=== PATIENT | male | born 1980 | race Caucasian/White ===

== ENCOUNTER 2019-05-02 17:31 | Emergency (ER) | payer OTHER ==
[~2019-05-02] VITALS: Ht 180.3 cm; Wt 134.1 kg
[2019-05-02] MEDS ORDERED: SUBO8MIS SL (19:48)
[2019-05-02 21:04] LABS: BASO # 0.1 10^3/uL (0.0-0.2); EOS # 0.4 10^3/uL (0.0-0.50); EOS % 3.3 % (0.0-3.0); HEMOGLOBIN 15.2 g/dl (13.5-17.5); LYMPH # 4.1 10^3/uL (1.5-4.5); LYMPH % 31.9 % (24.0-44.0); MEAN CORPUSCULAR HEMOGLOBIN 29.3 pg (27.0-33.0); MEAN CORPUSCULAR HGB CONC 32.3 g/dl (32.0-36.5); MEAN CORPUSCULAR VOLUME 90.6 fl (80.0-96.0); MONO # 0.8 10^3/uL (0.0-0.8); MONO % 6.3 % (0.0-5.0); NEUTROPHILS # 7.3 10^3/uL (1.8-7.7); NEUTROPHILS % 56.9 % (36.0-66.0); PLATELET COUNT, AUTOMATED 292 10^3/uL (150-450); RED BLOOD COUNT 5.19 10^6/uL (4.30-6.10); WHITE BLOOD COUNT 12.8 10^3/uL (4.0-10.0)
[2019-05-02 21:20] LABS: ALBUMIN 3.8 GM/DL (3.2-5.2); ALT/SGPT 44 U/L (12-78); BILIRUBIN,DIRECT < 0.1 MG/DL (0.0-0.2); BILIRUBIN,TOTAL 0.3 MG/DL (0.2-1.0); BLOOD UREA NITROGEN 14 MG/DL (7-18); C REACTIVE PROTEIN QUANTITATIV < 0.30 MG/DL (0.00-0.30); CALCIUM LEVEL 9.2 MG/DL (8.5-10.1); CARBON DIOXIDE LEVEL 31 MEQ/L (21-32); CHLORIDE LEVEL 109 MEQ/L (98-107); CREATININE FOR GFR 0.95 MG/DL (0.70-1.30); GLOMERULAR FILTRATION RATE > 60.0 (>60); GLUCOSE, FASTING 93 MG/DL (70-100); POTASSIUM SERUM 4.4 MEQ/L (3.5-5.1); SODIUM LEVEL 142 MEQ/L (136-145); TOTAL PROTEIN 7.5 GM/DL (6.4-8.2)
[2019-05-02 21:33] LABS: ERYTHROCYTE SEDIMENTATION RATE 5 mm/hr (0-15)
[2019-05-02 21:53] LABS: HEMOGLOBIN A1c 6.1 %
[2019-05-02 22:36] VITALS: BP 146/88
[2019-05-02] MEDS ORDERED: cefTRIAXone SOD 2 GM in D5W MINI-BAG PLUS 50 ML IV ONE (22:45)
[2019-05-02] MEDS ORDERED: DOXY100C37 PO (23:07)
--- NOTE | 2019-05-03 09:18 | REP ---
SCROTAL ULTRASOUND: Real-time sonographic evaluation of the scrotum and contents performed. The testicles are normal in echotexture, right testicle measuring 4 x 7 x 1.9 x 2.7 cm and the left testicle 7.7 x 2.7 x 2.3 cm. This measurement may include a part of the left epididymis. No testicular mass or torsion is seen. RI right testicle is 0.60 and left testicle 0.94. Right epididymis is unremarkable. Left epididymis is not well visualized. The left testicle and epididymis appear to be compressed by a very large left hydrocele. There is decreased diastolic flow in the left testicle. IMPRESSION: Small right hydrocele. Very large left hydrocele. The large hydrocele compresses the left testicle and epididymis. There is no testicular mass or torsion There is elevated resistive index and low diastolic flow in the left testicle due to the hydrocele compression. A preliminary report was provided by [facility] at the time of the exam Electronically Signed by Jd Byrnes MD 05/03/2019 10:11 A
--- NOTE | 2019-05-04 12:44 | ED PDOC ---
Post-Departure Follow-Up scrotal us faxed formal report to dr silvana luke for Sara Hernandez MD May 04, 2019 12:44
== END 2019-05-02 23:35 | disposition home or self-care (01) ==
LOC: M ED 17:31
DX: N43.3 Hydrocele, unspecified (principal); F11.10 Opioid abuse, uncomplicated; Z79.899 Other long term (current) drug therapy; F17.210 Nicotine dependence, cigarettes, uncomplicated
CPT/HCPCS: 76870; 80048; 80076; 81001; 83036; 83605; 85025; 85652; 86140; 87040; 93976; 96365; 99284; J0696

== ENCOUNTER → 2019-08-07 | Outpatient (REF) | payer OTHER ==
[~2019-08-07] MED LIST: DOXY100C37 PO; SUBO8MIS SL
[2019-08-07 13:05] LABS: ALBUMIN 3.5 GM/DL (3.2-5.2); ALT/SGPT 40 U/L (12-78); BILIRUBIN,TOTAL 0.5 MG/DL (0.2-1.0); BLOOD UREA NITROGEN 11 MG/DL (7-18); CALCIUM LEVEL 9.2 MG/DL (8.5-10.1); CARBON DIOXIDE LEVEL 31 MEQ/L (21-32); CHLORIDE LEVEL 103 MEQ/L (98-107); CHOLESTEROL LEVEL 283 MG/DL (<200); CHOLESTEROL RISK RATIO 8.323 (<5); GLOMERULAR FILTRATION RATE > 60.0 (>60); GLUCOSE, FASTING 106 MG/DL (70-100); HDL CHOLESTEROL 34 MG/DL (>40); LDL CHOLESTEROL 200 MG/DL (<100); NON-HDL-C 249 MG/DL; POTASSIUM SERUM 4.5 MEQ/L (3.5-5.1); SODIUM LEVEL 140 MEQ/L (136-145); TOTAL 25(OH) VITAMIN D 13.7 NG/ML (30.0-100.0); TOTAL PROTEIN 7.2 GM/DL (6.4-8.2); TRIGLYCERIDES LEVEL 243 MG/DL (<150)
== END ==
LOC: M LAB REF 12:16
PROVIDERS: ATTEND Nurse Practitioner Family
DX: Z00.00 Encounter for general adult medical examination without abnormal findings (principal)

== ENCOUNTER → 2021-03-04 | Outpatient (CLI) | payer OTHER ==
--- NOTE | 2021-03-04 14:43 | REP ---
INDICATION: EDEMA COMPARISON: None. TECHNIQUE: Real time byrnes scale and color Doppler evaluation of the bilateral lower extremity arterial vasculature using linear high frequency transducer. FINDINGS: Byrnes scale and color images demonstrate minimal bilateral atheromatous plaquing without stenosis or occlusion. Doppler interrogation demonstrates essentially normal triphasic arterial wave forms and velocities bilaterally with the exception of monophasic wave patterns noted to the bilateral distal posterior tibial arteries. Right MARTIN: 1.0 Left MARTIN: 1.0 Peak systolic velocities (cm/sec) Common femoral artery: Right 118; Left 118 Profunda femoris: Right 79; Left 86 SFA (proximal): Right 125; Left 157 SFA (mid): Right 85; Left 113 SFA (distal): Right 71; Left 76 Popliteal artery: Right 77; Left 50 TERRIE (prox.): Right 97; Left 58 Tibioperoneal trunk: Right 89; Left 57 DIRECTOR EPIDEMIOLOGY (prox.): Right 79; Left 55 DIRECTOR EPIDEMIOLOGY (distal): Right 77; Left 120 TERRIE (distal): Right 91; Left 65 IMPRESSION: Mild bilateral atheromatous plaquing without evidence for stenosis or occlusion. <Electronically signed by Darian Villarreal > 03/04/21 [id number]
== END ==
LOC: M RAD 13:12
PROVIDERS: ATTEND Family Medicine Addiction Medicine
DX: R60.0 Localized edema (principal)

== ENCOUNTER 2022-05-17 19:30 | Emergency (ER) | payer OTHER ==
[~2022-05-17] VITALS: Ht 180.3 cm; Wt 136.7 kg
[~2022-05-17 19:30] MED LIST changes: +DOXY-443 PO; -DOXY100C37 PO
[2022-05-17] MEDS ORDERED: CARV3.12 (19:37)
[2022-05-17] MEDS ORDERED: LOSA100T45 (19:37)
[2022-05-17] MEDS ORDERED: CETI-24 (19:37)
[2022-05-17 22:26] LABS: BASO # 0.1 10^3/uL (0.0-0.2); BASO % 1.1 % (0.0-1.0); EOS # 0.4 10^3/uL (0.0-0.5); EOS % 3.7 % (0.0-3.0); HEMATOCRIT 43.6 % (42.0-52.0); HEMOGLOBIN 13.5 g/dl (13.5-17.5); LYMPH # 4.2 10^3/uL (1.5-5.0); LYMPH % 36.1 % (24.0-44.0); MEAN CORPUSCULAR HEMOGLOBIN 27.5 pg (27.0-33.0); MEAN CORPUSCULAR VOLUME 88.8 fl (80.0-96.0); MONO # 1.1 10^3/uL (0.0-0.8); MONO % 9.3 % (2.0-8.0); NEUTROPHILS # 5.8 10^3/uL (1.5-8.5); NEUTROPHILS % 49.2 % (36.0-66.0); PLATELET COUNT, AUTOMATED 277 10^3/uL (150-450); RED BLOOD COUNT 4.91 10^6/uL (4.30-6.10); WHITE BLOOD COUNT 11.7 10^3/uL (4.0-10.0)
[2022-05-17 23:03] LABS: ALBUMIN 3.5 GM/DL (3.2-5.2); ALT/SGPT 43 U/L (12-78); BILIRUBIN,TOTAL 0.4 MG/DL (0.2-1.0); BLOOD UREA NITROGEN 12 MG/DL (7-18); C REACTIVE PROTEIN QUANTITATIV 3.74 MG/DL (0.00-0.30); CALCIUM LEVEL 9.3 MG/DL (8.5-10.1); CARBON DIOXIDE LEVEL 31 MEQ/L (21-32); CHLORIDE LEVEL 105 MEQ/L (98-107); CREATININE FOR GFR 0.88 MG/DL (0.70-1.30); GLOMERULAR FILTRATION RATE > 60.0 (>60); GLUCOSE, FASTING 91 MG/DL (70-100); POTASSIUM SERUM 4.3 MEQ/L (3.5-5.1); SODIUM LEVEL 139 MEQ/L (136-145); TOTAL PROTEIN 7.8 GM/DL (6.4-8.2)
[2022-05-17] MEDS ORDERED: AMOX875T2 PO (23:32)
[2022-05-17] MEDS ORDERED: AUGMENTIN 875 MG TAB PO ONE (23:35)
[2022-05-18] VITALS: BP 142/87
== END 2022-05-18 00:01 | disposition home or self-care (01) ==
LOC: M ED 19:30
DX: R22.42 Localized swelling, mass and lump, left lower limb (principal); I10 Essential (primary) hypertension; F17.200 Nicotine dependence, unspecified, uncomplicated; Z79.811 Long term (current) use of aromatase inhibitors; Z79.52 Long term (current) use of systemic steroids; Z79.899 Other long term (current) drug therapy

== ENCOUNTER → 2022-11-06 | Outpatient (REF) | payer OTHER ==
[~2022-11-06] MED LIST changes: +AMOX875T2 PO; +CARV3.12; +CETI-24; +LOSA100T45
[2022-11-06 14:35] LABS: ALBUMIN 3.7 G/DL (3.2-5.2); ALKALINE PHOSPHATASE 67 U/L (46-116); ALT/SGPT 56 U/L (7.0-40); AST/SGOT 38 U/L (<34); BILIRUBIN,TOTAL 0.6 MG/DL (0.3-1.2); BLOOD UREA NITROGEN 14 MG/DL (9-23); CALCIUM LEVEL 8.9 MG/DL (8.5-10.1); CARBON DIOXIDE LEVEL 30 MMOL/L (20-31); CHLORIDE LEVEL 104 MMOL/L (98-107); CHOLESTEROL LEVEL 164 MG/DL (<200); CHOLESTEROL RISK RATIO 5.14 (<5); GLOMERULAR FILTRATION RATE > 60.0 (>60); GLUCOSE, FASTING 85 MG/DL (60-100); HDL CHOLESTEROL 31.9 MG/DL (>40); LDL CHOLESTEROL 112.1 MG/DL (<100); NON-HDL-C 132 MG/DL; POTASSIUM SERUM 4.6 MMOL/L (3.5-5.1); SODIUM LEVEL 138 MMOL/L (136-145); TOTAL PROTEIN 7.4 G/DL (5.7-8.2); TRIGLYCERIDES LEVEL 100 MG/DL (<150)
[2022-11-06 14:36] LABS: THYROID STIMULATING HORMONE 4.663 uIU/ML (0.55-4.78)
== END ==
LOC: M LAB REF 12:39
PROVIDERS: ATTEND Family Medicine Addiction Medicine
DX: E78.5 Hyperlipidemia, unspecified (principal)

== ENCOUNTER → 2023-08-16 | Outpatient (REF) | payer OTHER ==
[~2023-08-16] MED LIST changes: -LOSA100T45; +LOSA100T46
== END ==
LOC: M LAB REF 16:12
PROVIDERS: ATTEND Family Medicine Addiction Medicine
DX: J02.9 Acute pharyngitis, unspecified (principal)

== ENCOUNTER → 2023-09-29 | Outpatient (REF) | payer OTHER ==
[2023-09-29 13:15] LABS: ALBUMIN 3.6 G/DL (3.2-5.2); ALKALINE PHOSPHATASE 72 U/L (46-116); ALT/SGPT 81 U/L (7.0-40); AST/SGOT 44 U/L (<34); BILIRUBIN,TOTAL 0.7 MG/DL (0.3-1.2); BLOOD UREA NITROGEN 11 MG/DL (9-23); CALCIUM LEVEL 9.1 MG/DL (8.5-10.1); CARBON DIOXIDE LEVEL 31 MMOL/L (20-31); CHLORIDE LEVEL 104 MMOL/L (98-107); CHOLESTEROL LEVEL 247 MG/DL (<200); CHOLESTEROL RISK RATIO 6.89 (<5); CREATININE FOR GFR 0.78 MG/DL (0.70-1.30); GLOMERULAR FILTRATION RATE > 60.0 (>60); GLUCOSE, FASTING 140 MG/DL (60-100); HDL CHOLESTEROL 35.8 MG/DL (>40); LDL CHOLESTEROL 176.2 MG/DL (<100); NON-HDL-C 211.2 MG/DL; POTASSIUM SERUM 4.4 MMOL/L (3.5-5.1); SODIUM LEVEL 139 MMOL/L (136-145); TOTAL PROTEIN 7.2 G/DL (5.7-8.2); TRIGLYCERIDES LEVEL 175 MG/DL (<150)
[2023-09-29 13:17] LABS: THYROID STIMULATING HORMONE 2.839 uIU/ML (0.55-4.78)
== END ==
LOC: M LAB REF 12:17
PROVIDERS: ATTEND Family Medicine Addiction Medicine
DX: E78.5 Hyperlipidemia, unspecified (principal)

== ENCOUNTER 2025-06-26 13:12 | Emergency (ER) | payer OTHER ==
[~2025-06-26] VITALS: Ht 182.9 cm; Wt 139.8 kg
[~2025-06-26 13:12] MED LIST changes: +DOXY-441 PO; -DOXY-443 PO
[2025-06-26] MEDS: NS (Normal Saline) 0.9% 1,000 ML IV ONE (14:45)
[2025-06-26 14:59] LABS: BASO # 0.1 10^3/uL (0.0-0.2); BASO % 1.2 % (0.0-1.0); EOS # 0.3 10^3/uL (0.0-0.5); EOS % 2.8 % (0.0-3.0); LYMPH # 2.7 10^3/uL (1.5-5.0); LYMPH % 24.2 % (24.0-44.0); MONO # 0.9 10^3/uL (0.0-0.8); MONO % 8.4 % (2.0-8.0); NEUTROPHILS # 6.9 10^3/uL (1.5-8.5); NEUTROPHILS % 62.8 % (36.0-66.0); PLATELET COUNT, AUTOMATED 256 10^3/uL (150-450)
[2025-06-26 15:08] LABS: APPEARANCE, URINE CLEAR (CLEAR); BACTERIA, URINE AUTO NEGATIVE (NEGATIVE); BILIRUBIN, URINE AUTO NEGATIVE (NEGATIVE); BLOOD, URINE BLOOD NEGATIVE (NEGATIVE); GLUCOSE, URINE (UA) AUTO 3+ mg/dL (NEGATIVE); KETONE, URINE AUTO NEGATIVE (NEGATIVE); LEUKOCYTE ESTERASE, URINE AUTO NEGATIVE (NEGATIVE); MUCUS, URINE SMALL (NEGATIVE); NITRITE, URINE AUTO NEGATIVE (NEGATIVE); PROTEIN, URINE AUTO 2+ mg/dL (NEGATIVE); RBC, URINE AUTO 1 /HPF (0-3); SPECIFIC GRAVITY URINE AUTO 1.027 (1.002-1.035); SQUAMOUS EPITHELIAL CELL UR AU 0 /HPF (0-6); UROBILINOGEN, URINE AUTO 0.2 mg/dL (0.0-2.0); WBC, URINE AUTO 0 /HPF (0-3)
[2025-06-26 15:11] LABS: INR 1.0
[2025-06-26] MEDS ORDERED: ISOVUE-370 76% 100 ML VIAL As Ordered ONE (15:21)
[2025-06-26 15:31] LABS: ALT/SGPT 104 U/L (7.0-40); AST/SGOT 55 U/L (<34)
[2025-06-26] MEDS ORDERED: METF500T13 PO (16:33)
[2025-06-26 16:39] LABS: ESTIMATED AVERAGE GLUCOSE 223.0 MG/DL (60-110)
[2025-06-26 17:04] VITALS: BP 161/101; TEMP 97.9; O2SAT 98
== END 2025-06-26 17:06 | disposition home or self-care (01) ==
LOC: EDBD 13:12 → M ED 13:12
DX: S30.1XXA Contusion of abdominal wall, initial encounter (principal); V49.40XA Driver injured in collision with unspecified motor vehicles in traffic accident, initial encounter; E11.9 Type 2 diabetes mellitus without complications; N28.1 Cyst of kidney, acquired; K40.90 Unilateral inguinal hernia, without obstruction or gangrene, not specified as recurrent; Z79.4 Long term (current) use of insulin; Z79.899 Other long term (current) drug therapy; Y92.410 Unspecified street and highway as the place of occurrence of the external cause; Y93.89 Activity, other specified; Y99.9 Unspecified external cause status
CPT/HCPCS: 36415; 71260; 72125; 74177; 80047; 80076; 81001; 83036; 83690; 85025; 85610; 85730; 86850; 86900; 86901; 99284; Q9967